=== PATIENT | male | born 1950 | race Caucasian/White ===

== ENCOUNTER 2016-05-28 13:13 | Outpatient (RCR) | payer MEDICARE, BC ==
[~2016-05-28 13:13] MED LIST: ASP81TEC PO; ATR20T PO; CALC-80 PO; LEUP11.25 IM; LEUPROLIDE 22.5 MG SYRIN(ELIGARD) SQ SCH; LVT.1T PO; METO25TA PO; NAPR220C PO; OMEG-12 PO; VIT1TABL57 PO; ZLP10T PO; [UNRECOGNIZED DRUG - OTHER] PO
== END 2016-06-02 | disposition home or self-care (01) ==
LOC: ONC 13:13
PROVIDERS: ATTEND Nurse Practitioner Adult Health
DX: C61 Malignant neoplasm of prostate (principal); C78.00 Secondary malignant neoplasm of unspecified lung; Z79.899 Other long term (current) drug therapy
CPT/HCPCS: 96402; 99213

== ENCOUNTER 2016-08-20 11:12 | Outpatient (RCR) | payer MEDICARE, BC ==
[~2016-08-20 11:12] MED LIST changes: -LEUPROLIDE 22.5 MG SYRIN(ELIGARD) SQ SCH
[2016-08-20 11:28] LABS: BASOPHILS % (AUTO) 1 % (0-10); EOSINOPHILS # (AUTO) 0.1 10^3/uL (0.0-0.3); EOSINOPHILS % (AUTO) 2 % (0-10); LYMPHOCYTES # (AUTO) 2.3 X 10^3 (1.0-4.0); LYMPHOCYTES % (AUTO) 41 % (12-44); MEAN CORPUSCULAR HEMOGLOBIN 30 PG (25-34); MEAN CORPUSCULAR HGB CONC 33 G/DL (32-36); MEAN CORPUSCULAR VOLUME 89 FL (80-99); MEAN PLATELET VOLUME 10.9 FL (7.4-10.4); MONOCYTES # (AUTO) 0.6 X 10^3 (0.0-1.0); MONOCYTES % (AUTO) 10 % (0-12); NEUTROPHILS # (AUTO) 2.7 X 10^3 (1.8-7.8); NEUTROPHILS % (AUTO) 47 % (42-75); PLATELET COUNT 158 10^3/uL (130-400); RED BLOOD COUNT 4.19 10^6/uL (4.35-5.85); RED CELL DISTRIBUTION WIDTH 14.1 % (10.0-14.5); WHITE BLOOD COUNT 5.7 10^3/uL (4.3-11.0)
[2016-08-20 11:51] LABS: ALANINE AMINOTRANSFERASE 30 U/L (0-55); ALBUMIN 4.2 G/DL (3.2-4.5); ANION GAP 5 MMOL/L (5-14); ASPARTATE AMINO TRANSFERASE 24 U/L (5-34); BILIRUBIN,TOTAL 0.4 MG/DL (0.1-1.0); BLOOD UREA NITROGEN 16 MG/DL (7-18); BUN/CREATININE RATIO 20; CALCIUM 9.3 MG/DL (8.5-10.1); CARBON DIOXIDE 27 MMOL/L (21-32); CHLORIDE 106 MMOL/L (98-107); CREATININE SERUM 0.81 MG/DL (0.60-1.30); GFR ESTIMATED > 60; GLUCOSE 89 MG/DL (70-105); POTASSIUM 4.5 MMOL/L (3.6-5.0); SODIUM 138 MMOL/L (135-145); TOTAL PROTEIN 6.8 G/DL (6.4-8.2)
[2016-08-20] MEDS ORDERED: LEUPROLIDE 45 MG ELIGARD SUSP SQ SCH (12:15)
== END 2016-11-18 | disposition home or self-care (01) ==
LOC: ONC 11:12
PROVIDERS: ATTEND Internal Medicine Hematology & Oncology
DX: C61 Malignant neoplasm of prostate (principal); C78.00 Secondary malignant neoplasm of unspecified lung; Z79.899 Other long term (current) drug therapy
CPT/HCPCS: 36415; 80053; 84153; 85025; 96402; 99213

== ENCOUNTER 2017-02-04 10:54 | Outpatient (RCR) | payer MEDICARE, BC ==
[2017-02-04] MEDS ORDERED: LEUPROLIDE 45 MG ELIGARD SUSP SQ SCH (12:00)
== END 2017-05-05 | disposition home or self-care (01) ==
LOC: ONC 10:54
PROVIDERS: ATTEND Internal Medicine Hematology & Oncology
DX: C61 Malignant neoplasm of prostate (principal); C78.00 Secondary malignant neoplasm of unspecified lung; Z79.899 Other long term (current) drug therapy
CPT/HCPCS: 96402; 99213